=== PATIENT | male | born 1945 | race Caucasian/White ===

== ENCOUNTER 2023-02-02 13:23 | Outpatient (CLI) | payer MEDICARE, SELFPAY ==
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
== END 2023-02-02 13:24 | disposition home or self-care (01) ==
PROVIDERS: PCP Urology; Visit Provider Urology
DX: C61 Malignant neoplasm of prostate (principal); M89.9 Disorder of bone, unspecified
CPT/HCPCS: 78815; A9595